=== PATIENT | female | born 1975 | race Caucasian/White ===

== ENCOUNTER 2018-05-06 09:52 | Emergency (ER) | payer MEDICAID ==
[~2018-05-06] VITALS: Ht 167.6 cm; Wt 56.7 kg
[2018-05-06 09:57] VITALS: BP_SYST 159
--- NOTE | 2018-05-06 10:50 | NUR ---
Patient to ER bed 6 to gown for evaluation. Side rails up. Report given to Almas SOMMERS.
--- NOTE | 2018-05-06 11:00 | NUR ---
PATIENT SITTING UP ON BED. RESPIRATIONS EVEN AND UNLABORED. DENIES OF ANY CHEST PAIN OR SOB. PT WITH C/O SHARP UPPER BACK AND BACK OF NECK PAIN x4-5 MONTHS. PAIN RADIATES TO THE RIGHT HAND AT TIMES AND CAUSES SOME NUMBNESS/TINGLING. DENIES OF ANY RECENT TRAUMA OR INJURY. PAIN = 7/10 AT THIS TIME. NO OBJECTIVE S/SX OF PAIN OBSERVED. REST, RELAXATION, AND DEEP BREATHING ENCOURAGED. MD AWARE OF PT CONDITION. WILL CONTINUE TO MONITOR.
--- NOTE | 2018-05-06 11:03 | NUR ---
ER Dr. VALLECILLO at bedside examining patient.
[2018-05-06 11:24] VITALS: BP_SYST 140
--- NOTE | 2018-05-06 11:24 | NUR ---
Patient given written and verbal discharge instructions and verbalizes understanding. ER MD discussed with patient the results and treatment provided. Patient in stable condition. ID arm band removed. Rx of norco and naproxen given. Patient educated on pain management and to follow up with PMD. Pain Scale 4. Dr Gooden is aware and pain prescription was given, pt states will take medication at home. Opportunity for questions provided and answered. Medication side effect fact sheet provided.
== END 2018-05-06 11:24 | disposition home or self-care (01) ==
LOC: SED 09:52
DX: M54.12 Radiculopathy, cervical region (principal); R03.0 Elevated blood-pressure reading, without diagnosis of hypertension; Z88.5 Allergy status to narcotic agent
CPT/HCPCS: 99283

== ENCOUNTER → 2018-12-25 | Emergency (ER) | payer MEDICAID ==
[~2018-12-25] VITALS: Ht 167.6 cm; Wt 57.2 kg
[~2018-12-25] MED LIST: POTASSIUM CHLORIDE 20 MEQ/PKT PACKET PO ONE
[2018-12-25 13:48] VITALS: BP_SYST 126
[2018-12-25 15:24] LABS: BASOPHILS % (AUTO) 0.6 % (0.0-2.0); EOSINOPHILS # (AUTO) 0.2 K/uL (0.0-0.4); HEMATOCRIT 30.5 % (36-48); HEMOGLOBIN 9.5 g/dL (12.0-16.0); LYMPHOCYTES # (AUTO) 1.2 K/uL (1.0-5.5); LYMPHOCYTES % (AUTO) 28.6 % (20.5-51.5); MEAN CORPUSCULAR HEMOGLOBIN 22 pg (27-31); MEAN CORPUSCULAR HGB CONC 31 % (32-36); MEAN CORPUSCULAR VOLUME 70 fL (79.0-98.0); MONOCYTES # (AUTO) 0.4 K/uL (0.0-1.0); MONOCYTES % (AUTO) 9.1 % (1.7-9.3); NEUTROPHILS # (AUTO) 2.3 K/uL (1.8-7.7); NEUTROPHILS % (AUTO) 56.7 % (40.0-70.0); PLATELET COUNT (AUTO) 289 K/uL (130-430); RED BLOOD CELL COUNT(AUTO) 4.35 MIL/uL (4.2-6.2); RED CELL DISTRIBUTION WIDTH 20.4 % (9.0-15.0); WHITE BLOOD COUNT (AUTO) 4.1 K/uL (4.8-10.8)
[2018-12-25 15:30] LABS: CALCIUM 8.8 mg/dL (8.4-11.0); CREATININE 0.7 mg/dL (0.55-1.30); POTASSIUM 3.3 mmol/L (3.5-5.1)
[2018-12-25 15:35] LABS: ALBUMIN 3.9 g/dL (3.4-4.8); TOTAL BILIRUBIN 0.3 mg/dL (0.0-1.0)
[2018-12-25 16:44] LABS: BILIRUBIN,URINE NEGATIVE (NEGATIVE); BLOOD, URINE 3+ (NEGATIVE); CLARITY/URINE CLOUDY (CLEAR); COLOR,URINE YELLOW (YELLOW); GLUCOSE,URINE NEGATIVE (NEGATIVE); KETONES,URINE NEGATIVE (NEGATIVE); LEUKOCYTE ESTERASE ,URINE NEGATIVE (NEGATIVE); NITRITE, URINE NEGATIVE (NEGATIVE); PH,URINE 5.5 (5.0-8.0); PROTEIN URINE NEGATIVE (NEGATIVE); UROBILINOGEN,URINE 0.2 (0.2-1.0)
[2018-12-25 16:50] VITALS: BP_SYST 126
[2018-12-25 17:08] LABS: BACTERIA,URINE FEW /HPF (None Seen); RBC,URINE >100 /HPF (0-3)
[2018-12-25 17:10] LABS: MUCUS,URINE 1+ /LPF (None Seen)
== END | disposition still patient (30) ==
LOC: SED 13:38
DX: N93.8 Other specified abnormal uterine and vaginal bleeding (principal); G43.909 Migraine, unspecified, not intractable, without status migrainosus; Z86.2 Personal history of diseases of the blood and blood-forming organs and certain disorders involving the immune mechanism; Z88.5 Allergy status to narcotic agent
CPT/HCPCS: 36415; 76830-TC; 76857; 80053; 81000-TC; 85025; 99284

== ENCOUNTER 2018-12-29 15:45 | Emergency (ER) | payer MEDICAID ==
[~2018-12-29] VITALS: Ht 167.6 cm; Wt 56.7 kg
[2018-12-29 15:55] VITALS: BP_SYST 123
--- NOTE | 2018-12-29 16:07 | NUR ---
Patient to ER bed 07 to gown for evaluation. Side rails up. Report given to TOOTIE Mark
--- NOTE | 2018-12-29 16:08 | NUR ---
Patient to ER bed 07 to gown for evaluation. Side rails up.
--- NOTE | 2018-12-29 16:08 | NUR ---
Pt AAOx4 ambulated into ED c/o vaginal bleeding x 2 weeks. 5/10 pelvic pain. Was seen in ED x 3 days ago where Hg was 9.5. Pt denies taking medication for pain. No other injuries/complaints per pt/noted. Will continue to monitor.
--- NOTE | 2018-12-29 16:13 | NUR ---
Haim Sandoval at bedside examining patient.
--- NOTE | 2018-12-29 16:13 | NUR ---
Elva milligan in [facility] - 12/29/18 at 1613 by [email or web address] Haim Pacheco examining patient.
[2018-12-29] MEDS ORDERED: NACL 0.9% 1,000 ML IV ONE (16:15)
[2018-12-29 16:36] LABS: BASOPHILS % (AUTO) 0.7 % (0.0-2.0); EOSINOPHILS # (AUTO) 0.2 K/uL (0.0-0.4); EOSINOPHILS % (AUTO) 4.4 % (0.0-4.0); HEMATOCRIT 25.6 % (36-48); LYMPHOCYTES # (AUTO) 0.9 K/uL (1.0-5.5); MEAN CORPUSCULAR HEMOGLOBIN 22 pg (27-31); MEAN CORPUSCULAR HGB CONC 31 % (32-36); MEAN CORPUSCULAR VOLUME 69 fL (79.0-98.0); MONOCYTES # (AUTO) 0.4 K/uL (0.0-1.0); MONOCYTES % (AUTO) 11.1 % (1.7-9.3); NEUTROPHILS # (AUTO) 2.4 K/uL (1.8-7.7); NEUTROPHILS % (AUTO) 60.8 % (40.0-70.0); PLATELET COUNT (AUTO) 267 K/uL (130-430); RED BLOOD CELL COUNT(AUTO) 3.71 MIL/uL (4.2-6.2); RED CELL DISTRIBUTION WIDTH 19.3 % (9.0-15.0)
[2018-12-29 16:39] LABS: CALCIUM 8.9 mg/dL (8.4-11.0); CREATININE 0.76 mg/dL (0.55-1.30); POTASSIUM 3.6 mmol/L (3.5-5.1)
[2018-12-29 16:43] LABS: ALBUMIN 3.7 g/dL (3.4-4.8); TOTAL BILIRUBIN 0.3 mg/dL (0.0-1.0)
[2018-12-29 16:54] LABS: PROTHROMBIN TIME 10.1 SECS (9.5-12.5)
--- NOTE | 2018-12-29 17:03 | NUR ---
Pelvic exam performed by Dr. Sandoval with Jas SOMMERS at bedside for entire examination. Patient tolerated procedure well. Patient assisted to position of comfort after examination.
--- NOTE | 2018-12-29 17:36 | NUR ---
Patient given written and verbal discharge instructions and verbalizes understanding. ER MD Sandoval discussed with patient the results and treatment provided. Patient in stable condition. ID arm band removed. IV catheter removed intact and dressing applied, no active bleeding. No Rx given. Patient educated on pain management and to follow up with PMD. Pain Scale 0. Opportunity for questions provided and answered. Medication side effect fact sheet provided.
[2018-12-29 17:38] VITALS: BP_SYST 119
== END 2018-12-29 17:38 | disposition home or self-care (01) ==
LOC: SED 15:45
DX: N93.8 Other specified abnormal uterine and vaginal bleeding (principal); R03.0 Elevated blood-pressure reading, without diagnosis of hypertension; G43.909 Migraine, unspecified, not intractable, without status migrainosus; Z86.2 Personal history of diseases of the blood and blood-forming organs and certain disorders involving the immune mechanism; Z88.5 Allergy status to narcotic agent
CPT/HCPCS: 36415; 80053; 85025; 85610-TC; 85730-TC; 86886; 86900; 86901; 99283